=== PATIENT | female | born 1995 | race Caucasian/White ===

== ENCOUNTER → 2019-01-13 | Outpatient (REF) | payer OTHER | LOC: M SFHCLERA 10:23 | PROVIDERS: ATTEND Physician Assistant | DX: N89.8 Other specified noninflammatory disorders of vagina (principal) | CPT/HCPCS: 81002; 81025; 87070; G0463 ==

== ENCOUNTER → 2019-05-17 | Outpatient (CLI) | payer OTHER ==
[2019-05-17 17:55] LABS: BASO % 0.4 % (0.0-1.0); EOS # 0.1 10^3/uL (0.0-0.5); EOS % 0.8 % (0.0-3.0); HEMOGLOBIN 12.8 g/dl (12.0-15.5); LYMPH % 20.1 % (24.0-44.0); MEAN CORPUSCULAR HEMOGLOBIN 30.3 pg (27.0-33.0); MEAN CORPUSCULAR HGB CONC 32.8 g/dl (32.0-36.5); MEAN CORPUSCULAR VOLUME 92.2 fl (80.0-96.0); MONO # 0.7 10^3/uL (0.0-0.8); MONO % 6.9 % (0.0-5.0); NEUTROPHILS # 7.2 10^3/uL (1.5-8.5); NEUTROPHILS % 71.6 % (36.0-66.0); PLATELET COUNT, AUTOMATED 327 10^3/uL (150-450); RED BLOOD COUNT 4.23 10^6/uL (4.00-5.40); WHITE BLOOD COUNT 10.1 10^3/uL (4.0-10.0)
[2019-05-17 20:31] LABS: CHLAMYDIA DNA AMPLIFICATION NEGATIVE (NEGATIVE); GC DNA AMPLIFICATION NEGATIVE (NEGATIVE)
[2019-05-18 09:06] LABS: HEPATITIS C VIRUS ABY INDEX 0.1 INDEX (<0.8); HIV 1&2 SCREEN CENTAUR NEGATIVE (NEGATIVE); RUBELLA IgG QUALITATIVE IMMUNE (IMMUNE)
== END ==
LOC: M SMT 14:56
PROVIDERS: ATTEND Advanced Practice Midwife
DX: Z34.01 Encounter for supervision of normal first pregnancy, first trimester (principal); Z3A.10 10 weeks gestation of pregnancy

== ENCOUNTER → 2019-08-18 | Outpatient (REF) | payer OTHER | LOC: M SFHCLERA 18:42 | PROVIDERS: ATTEND Physician Assistant Medical | DX: J06.9 Acute upper respiratory infection, unspecified (principal) ==

== ENCOUNTER 2019-12-17 19:52 | Outpatient (CLI) | payer OTHER ==
[~2019-12-17] VITALS: Ht 167.6 cm; Wt 86.9 kg
[2019-12-17 20:14] VITALS: BP 133/84
[2019-12-17] MEDS ORDERED: PRENTAB9 PO ×2 (20:19)
--- NOTE | 2019-12-17 21:07 | IPNPDOC ---
Text Note Date of Service The patient was seen on 12/17/19. NOTE LND Triage Note S: Juli is a 24yo at 40+4wks gestation, EDC [id number] by LMP/1TUS, who presents to triage for labor check. She reports +FM, denies LOF/VB. She reports contractions that started around noon and have progressively become stronger. She is concerned about being about to be adequately treated for GBS in labor. Her is complicated by GBS Positive and excessive weight gain. Her placenta is posterior with a small anterior lobe. O: VSS, afebrile, normotensive FHR 140s, moderate variability, Positive accels, early decels noted. CTX by TOCO q 3-5 minutes apart VE by RN: / A: Latent labor, Category I FHT, reassuring status. P: Discharge home with labor/danger precautions Discussed comfort measures for early/latent labor f/u in clinic for next JUSTIN or here in LND PRN VS,Fishbone, I+O VS, Fishbone, I+O Vital Signs Date Time Temp Pulse Resp B/P (MAP) Pulse Ox O2 Delivery O2 Flow Rate FiO2 12/17/19 20:14 97.8 106 18 133/84 (100) 98 Room Air JOSEPHINE GIRALDO CNM December 17, 2019 21:07
== END 2019-12-17 20:55 | disposition home or self-care (01) ==
LOC: M LDO 19:52
PROVIDERS: ATTEND Registered Nurse Maternal Newborn
DX: O26.893 Other specified pregnancy related conditions, third trimester (principal); O99.820 Streptococcus B carrier state complicating pregnancy; O47.1 False labor at or after 37 completed weeks of gestation; Z3A.40 40 weeks gestation of pregnancy
CPT/HCPCS: 59025; G0378; G0463

== ENCOUNTER 2019-12-18 01:12 | Inpatient (IN) | payer OTHER ==
[2019-12-18] VITALS (51 sets, daily range): BP systolic 96–153; BP diastolic 53–98
[~2019-12-18] VITALS: Ht 167.6 cm; Wt 86.5 kg
[~2019-12-18 01:12] MED LIST: PRENTAB9 PO
[2019-12-18] MEDS ORDERED: PENICILLIN G POTASSIUM IV 5 MU in D5W MINI-BAG PLUS 100 ML IV STA ×2 (02:32→04:00)
[2019-12-18] MEDS ORDERED: LACTATED RINGER'S 1000 ML IV STA (02:32)
--- NOTE | 2019-12-18 02:41 | HPEPDOC ---
Obstetrical History & Physical General Date of Admission December 18, 2019 at 02:09 History of Present Illness Juli is a 24yo at 40+5wks gestation, EDC [id number] by LMP/1TUS, who is being admitted to [facility] for early active labor. Pt was seen last PM in triage at 3cm and returned this AM with cervical change to 4-5cm with bloody show (exam by RN). She endorses movement, has had bloody show since her last triage exam; she denies LOF. Her is complicated by anterior accessory lobe (posterior placenta) GBS Positive She is overweight and has had excessive weight gain (41lbs) Elevated 1hr (151); 3hr GTT WNL Blood Type A Positive OB Hx: SAB 2012 Chief Complaint: Contractions, term Information Provided By: Patient Age: 24 : 2 Term: 0 Pre-term: 0 Abortions: 1 Livin Care Care: Good Care Number of Visits: 8 Dating Final EDC: December 13, 2019 Final EDC for Daily Update: December 13, 2019 Final EDC by: LMP LMP: Mar 08, 2019 Antepartum Course Height (inches): 66 Pre- weight (lbs.): 155 Admission Weight (lbs.): 196 Change in Weight (lbs.): 41 Past Medical History Past Obstetrical History : Past Obstetrical History: Multigravida [place] History: Spontaneous , Human papillomavirus(HPV) (Pap [id number] LSIL, HPV+, needs Colpo PP) Past Medical History Surgical History: Denies/None Family History Significant Family History: No pertinent family hx, Noncontributory Social History Marital Status: Family situation: Spouse/partner home Psychosocial History: No pertinent psych hx * Smoker: non-smoker Alcohol: Denies Drugs: denies Imunizations Tdap status: current Influenza Status: declined Allergies Coded Allergies: No Known Allergies (Unverified , 12/17/19) Medications Scheduled No.137/Iron/Folic Acd ( Vitamin Tablet) 1 Each Tablet, 1 TAB PO DAILY Physical Examination Physical Examination GENERAL: Alert and oriented times three. ABDOMEN: Gravid and non-tender to touch. FETUS: Is vertex by sterile vaginal examination. HEART RATE: Regular rate. LUNGS: Observed normal, nonlabored breathing. EXTREMITIES: No edema. Vital Signs/I&O O: VSS, afebrile, normotensive VE by RN at admission: 4-5/80/-1 FHR: 140s, moderate variability, + accels, early and 1x late deceleration noted CTX by TOCO irregular 5-6 minutes, moderate by palpation Laboratory Data 24H LABS Laboratory Tests 12/18/19 02:45 Pertinent Laboratoy Data Blood Type: A+ RBC Antibody Screen: Negative HIV: Negative Hepatitis B: Negative Rapid Plasma Reagin: Nonreactive Rubella: Immune Varicella: Immune Chlamydia/Gonorrhea: Negative Group B Streptococcus: Positive Quad Screen Test: Unknown Cystic Fibrosis: Unknown Glucose Tolerance Test: 151 Anatomy Ultrasound Ultrasound Date: Jul 26, 2019 Placenta Location: Posterior (with anterior accessory lobe) Normal Anatomy: Yes Placenta Previa: No Vaginal Examination Presentation: Cephalic presentation Assessment/Plan Assessment A: Juli is a 24yo at 40+5wks being admitted for labor, GBS Positive, Blood Type A Positive; Category II FHT d/t x1 late deceleration, overall reassuring status. Plan P: Admit to LND; consent for labor, delivery, possible labor augmentation. PIV start, admission labs drawn. PCN for GBS prophylaxis PO and IV hydration Expectant management IV pain meds and epidural available for pain management CEFM x2 Close maternal/ monitoring Consult with OB if indicated Anticipate JOSEPHINE GIRALDO CNM December 18, 2019 02:41
[2019-12-18 03:04] LABS: BASO % 0.2 % (0.0-1.0); EOS # 0.1 10^3/uL (0.0-0.5); EOS % 0.5 % (0.0-3.0); HEMATOCRIT 41.3 % (36.0-47.0); HEMOGLOBIN 13.9 g/dl (12.0-15.5); LYMPH # 1.9 10^3/uL (1.5-5.0); LYMPH % 13.3 % (24.0-44.0); MEAN CORPUSCULAR HEMOGLOBIN 30.5 pg (27.0-33.0); MEAN CORPUSCULAR HGB CONC 33.7 g/dl (32.0-36.5); MEAN CORPUSCULAR VOLUME 90.8 fl (80.0-96.0); MONO # 0.9 10^3/uL (0.0-0.8); MONO % 6.4 % (0.0-5.0); NEUTROPHILS # 11.2 10^3/uL (1.5-8.5); PLATELET COUNT, AUTOMATED 243 10^3/uL (150-450); RED BLOOD COUNT 4.55 10^6/uL (4.00-5.40); WHITE BLOOD COUNT 14.2 10^3/uL (4.0-10.0)
[2019-12-18] MEDS ORDERED: PROMETHAZINE INJ 25 MG/ML VIAL (J2550) IV ONE (03:30)
[2019-12-18] MEDS ORDERED: BUTORPHANOL 2 MG/ML INJ (J0595) IV ONE (03:30)
[2019-12-18] MEDS ORDERED: PENICILLIN G POTASSIUM 5 MU VIAL As Ordered ONE (03:53)
[2019-12-18] MEDS ORDERED: PENICILLIN G POTASSIUM IV 2.5 MU in IV 1 EA IV SCH (06:45)
[2019-12-18] MEDS: PENICILLIN G POTASSIUM IV 2.5 MU in IV 1 EA IV SCH ×4 (07:56→22:25)
--- NOTE | 2019-12-18 08:26 | IPNPDOC ---
Text Note Date of Service The patient was seen on 12/18/19. NOTE Intrapartum Note: S: Juli is a 24yo at 40+5wks admitted early this morning in labor. She is now rating her contractions at an 8/10, crampy feeling, but tolerable. O: VSS, afebrile, normotensive VE: 6/C/0 with BBOW FHT: 130s, moderate variability, + accels, no decels noted CTX: q2-4 by TOCO A: Active labor, Category I FHT, GBS Positive P: CEFM x2 Can have intermittent monitoring with Category I FHT if pt desires to walk or shower Plan to AROM after she receives her 2nd dose of PCN Consult with OB as indicated Safe to proceed Anticipate VS,Fishbone, I+O VS, Fishbone, I+O Laboratory Tests 12/18/19 02:45 Vital Signs Date Time Temp Pulse Resp B/P (MAP) Pulse Ox O2 Delivery O2 Flow Rate FiO2 12/18/19 07:09 98.2 100 20 137/79 (98) 97 Room Air JOSEPHINE GIRALDO CNM December 18, 2019 08:26
[2019-12-18] MEDS: LR 1,000 ML IV SCH ×3 (09:02→14:12)
[2019-12-18] MEDS ORDERED: FENTANYL 2MCG/ML ROPIVACAINE 0.2% IN 0.9% NACL 100ML IVBAG As Ordered ONE (11:51)
[2019-12-18] MEDS ORDERED: ONDANSETRON 4MG/2ML VIAL IV PRN (13:00)
[2019-12-18] MEDS ORDERED: EPIDURAL/PCA KEYS XX PRN (13:00)
[2019-12-18] MEDS ORDERED: NALOXONE INJ 0.4MG/1ML VIAL (J2310 PER 1MG) IV PRN (13:00)
[2019-12-18] MEDS ORDERED: LACTATED RINGER'S 1000 ML IV PRN (13:00)
[2019-12-18] MEDS ORDERED: EPIDURAL COMMENT XX SCH (13:00)
[2019-12-18] MEDS ORDERED: diphenhydrAMINE 50MG/ML VIAL (J1200) IV PRN (13:00)
[2019-12-18] MEDS ORDERED: REFRIGERATOR IV KEYS XX PRN (13:00)
[2019-12-18] MEDS: ePHEDrine SULFATE 25 MG/5 ML(5MG/ML) SYRINGE IV PRN ×3 (13:08→13:16)
[2019-12-18] MEDS: FENTANYL/ROPIVACAINE/NACL BAG 100 ML EPIDURAL SCH ×2 (13:18→22:28)
--- NOTE | 2019-12-18 16:05 | IPNPDOC ---
Text Note Date of Service The patient was seen on 12/18/19. NOTE Intrapartum Note Patient is now comfortable with epidural, has been napping. Vitals wnl, afebrile Cat I-II FHRT with bl 140's, +accels, mod karissa, occasional variable(?) decel- nonrepetitive SCE: 75/-1, IUPC placed (AROM occurred 0937, clear) This represents no cervical change, despite AROM this morning, over 7 hours Will monitor for another 2 hours, supplement with pitocin if MVUs indicate need for it Safe to proceed Dr. Majo Rincon MD VS,Heena, I+O VS, Heena, I+O Laboratory Tests 12/18/19 02:45 Vital Signs Date Time Temp Pulse Resp B/P (MAP) Pulse Ox O2 Delivery O2 Flow Rate FiO2 12/18/19 15:23 98.7 12/18/19 15:02 104 20 103/59 (74) 12/18/19 12:46 97 Room Air Majo Rincon MD December 18, 2019 16:05
[2019-12-18] MEDS ORDERED: OXYTOCIN DRIP 30 UNITS in IV 1 EA IV SCH (16:15)
[2019-12-18] MEDS ORDERED: BICITRA 30ML SOLN UDC PO ONE (17:30)
--- NOTE | 2019-12-18 20:43 | IPNPDOC ---
Text Note Date of Service The patient was seen on 12/18/19. NOTE Intrapartum Note I checked patient about 2 hours ago and was unchanged. Spoke with patient and her mother (via phone) regarding my recommendation for section indicated for arrest of dilation (she had had no change in cervix over 10 hours), but they requested another hour to re-evaluate. After assisting Dr. Robertson with another , I went in to re-eval Juli. She is sitting up in high fowlers, states she is feeling "pressure in the front". RN notes seeing some "good bloody show". Pitocin has been slowly titrated up per protocol. Vitals wnl, afebrile (99.6F) Cat I FHRT with bl 140's, +accels, mod karissa, no decels SCE: 6//-1, cervix still feels 'swollen' on the right side This continues to represent no cervical change, now over 12 hours meeting crite jeffrey for arrest of dilation I again made my recommendation for PLTCS and again patient requests "another hour to re-evaluate". I specifically discussed increasing risks for hemorrhage, infection (stated that if she develops a fever, her baby will be from her in the NICU during her course), and possibility of developing a non-reassuring heart rate tracing. Patient still declines PLTCS and requests another hour to re-eval. Safe to proceed Dr. Majo Rincon MD VS,Heena, I+O VS, Heena, I+O Laboratory Tests 12/18/19 02:45 Vital Signs Date Time Temp Pulse Resp B/P (MAP) Pulse Ox O2 Delivery O2 Flow Rate FiO2 12/18/19 18:37 99.2 12/18/19 18:32 111 20 120/64 (82) 12/18/19 12:46 97 Room Air Majo Rincon MD December 18, 2019 20:43
[2019-12-19] VITALS (12 sets, daily range): BP systolic 109–141; BP diastolic 59–79
--- NOTE | 2019-12-19 00:15 | IPNPDOC ---
Text Note Date of Service The patient was seen on 12/19/19. NOTE Intrapartum Note Pt feeling pressure with ctx, but overall comfortable with epidural. Vitals wnl, afebrile Cat I FHRT with bl 150's, +accels, mod karissa, no decels SCE: C/C/0 (after pushing anterior lip back with several sets of pushes) Will allow passive descent for 1 hour then begin pushing in earnest Will continue to closely observe Safe to proceed Dr. Majo Rincon MD VS,Heena, I+O VS, Heena, I+O Laboratory Tests 12/18/19 02:45 Vital Signs Date Time Temp Pulse Resp B/P (MAP) Pulse Ox O2 Delivery O2 Flow Rate FiO2 12/18/19 18:37 99.2 12/18/19 18:32 111 20 120/64 (82) 12/18/19 12:46 97 Room Air I&O- Last 24 Hours up to 6 AM 12/19/19 05:59 Intake Total 5260 ml Output Total 2275 ml Balance 2985 ml Majo Rincon MD December 19, 2019 00:15
[2019-12-19] MEDS ORDERED: OXYTOCIN DRIP 30 UNITS in IV 1 EA IV SCH (03:03)
--- NOTE | 2019-12-19 03:11 | DNPDOC ---
[facility] Delivery Note Delivery Note DATE OF DELIVERY: December 19, 2019 PREDELIVERY DIAGNOSIS: 40w6d gestation and labor. POST DELIVERY DIAGNOSIS: Delivered. PROCEDURE: Spontaneous vaginal delivery MULTIMEDIA PROJECT MANAGER: Dr. Majo Rincon MD ANESTHESIA: epidural ESTIMATED BLOOD LOSS: 250 mL. FINDINGS: 8 pound 6 ounce (3800g) male , Score 7/9 DELIVERY SUMMARY: Juli is a 24yo [id number] s/p uncomplicated at 02:35 on 12/19/19 after presenting to L&D in active labor at 40w6d. She experienced (by definition, per ACOG guidelines) arrest at 6cm for 12 hours, but declined section when counseled on more than one occasion. With pitocin augmentation and position changes, she did eventually progress to C/C/0 at which point she began pushing. She received an epidural earlier in labor, and when SROM was performed, there was clear fluid. During pushing stage (just over an hour) there was tachycardia to 160's, maternal temp never greater than 99.6F. 's head delivered OA, restituted EVERETTE. Left anterior shoulder delivered with ease followed by right posterior shoulder, then remainder of body delivered to maternal abdomen where was dried and stimulated; nose and mouth suctioned with bulb suction, strong, lusty cry, apgars 7/9. Very thick meconium was only noted upon delivery of the shoulders. At 2 minutes of life, cord was clamped x2 and cut by FOB. With uterine massage and traction on the cord, placenta delivered spontaneously and intact with 3 vessel centrally inserted cord. Small trailing membrane teased out with ring forceps and removed in its entirety. Pitocin bolus started with delivery of placenta. Fundus then firm at u-2cm with hemostasis noted. Upon inspection of vagina and perineum, small right labial laceration noted leading into a small sulcal laceration and repaired with 3-0 vicryl suture in usual fashion. Good cosmetic effect with total reapproximation and complete hemostasis noted. All counts correct x2. Mom and were doing well when I left the room. MD Sergey Guerrero Katrina D MD December 19, 2019 03:10
[2019-12-19] MEDS ORDERED: MEASLES,MUMPS,RUBELLA VACCINE INJ (MMR-II) (90707) SC SCH (03:15)
[2019-12-19] MEDS ORDERED: IBUPROFEN 800 MG TAB PO PRN (03:15)
[2019-12-19] MEDS ORDERED: ACETAMINOPHEN TAB 650MG DOSE (2X325MG) PO PRN (03:15)
[2019-12-19] MEDS ORDERED: ACETAMINOPHEN 500 MG TAB PO PRN (03:15)
[2019-12-19] MEDS ORDERED: RHOGAM 300 MCG (1500 IU) INJ (J2790) IM SCH (03:15)
[2019-12-19] MEDS ORDERED: DOCUSATE SODIUM 100 MG CAP PO PRN (03:15)
[2019-12-19] MEDS ORDERED: DIBUCAINE 1% OINTMENT 30GM TOP PRN (03:15)
[2019-12-19] MEDS ORDERED: IBUPROFEN 600 MG TAB PO PRN (03:15)
[2019-12-19] MEDS: PRENATAL VITAMINS CHEWABLE TABLET PO SCH (09:24)
[2019-12-20 06:00] VITALS: BP 110/74
[2019-12-20] MEDS ORDERED: DOCU100C16 PO (07:18)
[2019-12-20] MEDS ORDERED: IBUP80TA PO (07:18)
[2019-12-20] MEDS ORDERED: DIBU10OI TOP (07:18)
[2019-12-20 07:35] VITALS: BP 110/74
[2019-12-20] MEDS: PRENATAL VITAMINS CHEWABLE TABLET PO SCH (10:38)
--- NOTE | 2019-12-21 17:29 | DSES ---
DATE OF ADMISSION: 12/18/2019 DATE OF DISCHARGE: 12/20/2019 A 24-year-old 2, now para 1 admitted in active labor at 40 and six weeks of gestation, had spontaneous vaginal delivery of a live male , 8 pounds, 6 ounces, 3800 grams, scores of 7 and 9 at one and five minutes respectively. On discharge, her blood pressure is 110/74, respirations 18, pulse 78, temperature is 97.2. Her admitting hemoglobin 13.9, hematocrit 41.3 and platelets were 243. We discussed phlebitis, cystitis, mastitis, endometritis and cellulitis, diet, exercise pain management, perineal, breast and wound care. On discharge, she is normocephalic, atraumatic. Neck: Full range of motion. Pupils equal and reactive to light. Distal pulses are symmetric. No evidence of deep vein thrombosis (DVT), pulmonary embolism (PE) or superficial phlebitis. Chest is clear bilaterally to bases. No wheezes or rhonchi. No costovertebral angle (CVA) tenderness. Abdomen is soft. Four quadrant bowel sounds. Uterus 2 below. Lochia is moderate. Perineum is intact. She has no rashes, lesions or pruritus. No arthralgia or myalgia. No complaint of cough, wheeze, shortness of breath or dyspnea on exertion. 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 Discharge followup with baby at [facility].
--- NOTE | 2019-12-22 04:45 | IPN ---
DATE: 12/19/2019 This patient requested circumcision of her male after discussing risks and benefits of circumcision, medical and nonmedical indications, penile block, and aftercare. Expressed understanding of penile block, aftercare, and bleeding. Signed the consent form. All questions were answered. 20-minute discussion. We await the clearance by the ceo.
== END 2019-12-20 14:20 | disposition home or self-care (01) | DRG 807 ==
LOC: M LDO 01:12 → M LDI 02:09 → M OBS 12-19 05:27
PROVIDERS: ADMIT Registered Nurse Maternal Newborn; ATTEND Registered Nurse Maternal Newborn
PROC: 10E0XZZ Delivery of Products of Conception, External Approach (ICD-10-PCS; principal; 2019-12-19)
PROC: 0HQ9XZZ Repair Perineum Skin, External Approach (ICD-10-PCS; 2019-12-19)
DX: O48.0 Post-term pregnancy (principal); Z37.0 Single live birth; Z3A.40 40 weeks gestation of pregnancy; O99.824 Streptococcus B carrier state complicating childbirth; O76 Abnormality in fetal heart rate and rhythm complicating labor and delivery; O70.0 First degree perineal laceration during delivery